=== PATIENT | female | born 2000 | race Caucasian/White ===

== ENCOUNTER 2023-04-09 00:48 | Emergency (ER) | payer BC, OTHER ==
[2023-04-09 01:05] VITALS: BP 106/70; PULSE 100; RESP 18; TEMP 98.2; BMI 24.0
[2023-04-09] MEDS ORDERED: AMOX TR/POT CLAV 875MG/125MG TABLETS (FP) PO ONE (01:50)
[2023-04-09] MEDS ORDERED: AMOX TR/POT CLAV 875MG/125MG TABLETS (FP) ONE (01:58)
== END 2023-04-09 02:51 | disposition home or self-care (01) ==
LOC: JER 00:48
PROC: 0HQGXZZ Repair Left Hand Skin, External Approach (ICD-10-PCS; principal; 2023-04-09)
DX: S61.217A Laceration without foreign body of left little finger without damage to nail, initial encounter (principal); W27.4XXA Contact with kitchen utensil, initial encounter; Y93.G1 Activity, food preparation and clean up
CPT/HCPCS: 99283-25